=== PATIENT | male | born 1995 ===

== ENCOUNTER 2016-07-24 13:43 | Emergency (ER) | payer SELFPAY ==
[~2016-07-24] VITALS: Ht 188 cm; Wt 8.2 kg
[2016-07-24 13:44] VITALS: BP 167/70
== END 2016-07-24 15:11 | disposition left against medical advice (07) ==
LOC: M ED 14:18
DX: S99.919A Unspecified injury of unspecified ankle, initial encounter (principal); Z53.21 Procedure and treatment not carried out due to patient leaving prior to being seen by health care provider